=== PATIENT | male | born 1945 | race American Indian/Alaskan Native ===

== ENCOUNTER 2017-10-24 20:01 | Inpatient (IN) | payer MEDICARE, OTHER ==
[2017-10-24] MEDS ORDERED: ASPIRIN ONE (20:08)
[2017-10-24] MEDS ORDERED: ASPIRIN PO ONE (20:10)
[2017-10-24 20:33] LABS: Basophils # (Auto) 0.1 K/mm3 (0.0-0.1); Basophils % (Auto) 1.4 % (0.0-1.8); Eosinophils # (Auto) 0.3 K/mm3 (0.0-0.4); Eosinophils % (Auto) 3.3 % (0.0-4.3); Hematocrit 44.4 % (35.5-45.6); Hemoglobin 15.1 gm/dl (11.8-15.2); Lymphocytes # (Auto) 4.1 K/mm3 (1.2-5.4); Lymphocytes % (Auto) 41.9 % (13.4-35.0); Mean Corpuscular HGB Conc 34 % (32-34); Mean Corpuscular Hemoglobin 29 pg (28-32); Mean Corpuscular Volume 84 fl (84-94); Monocytes # (Auto) 0.7 K/mm3 (0.0-0.8); Monocytes % (Auto) 6.9 % (0.0-7.3); Platelet Count 152 K/mm3 (140-440); Red Blood Count 5.29 M/mm3 (3.65-5.03)
[2017-10-24 20:51] LABS: BUN/Creatinine Ratio 11; Blood Urea Nitrogen 11 mg/dL (9-20); Calcium 9.4 mg/dL (8.4-10.2); Hemolysis Index 12
--- NOTE | 2017-10-24 22:04 | XRay Report ---
FINAL REPORT EXAM: XR CHEST ROUTINE 2V HISTORY: sob TECHNIQUE: 2 views of the chest. PRIORS: None. FINDINGS: There is atherosclerosis in the thoracic aorta. Otherwise the cardiomediastinal silhouette appears normal. The lungs are clear. The bones and soft tissues are unremarkable. IMPRESSION: No evidence of acute cardiopulmonary disease
[2017-10-24] MEDS ORDERED: TYLENOL ONE (23:47)
[2017-10-25] MEDS ORDERED: TYLENOL PO ONE ×2 (00:20→05:23)
[2017-10-25] MEDS ORDERED: TYLENOL ONE (05:10)
[2017-10-25] MEDS ORDERED: ULTRAM PO ONE (06:34)
--- NOTE | 2017-10-25 06:52 | Emergency Department Report ---
ED Chest Pain HPI - General Chief Complaint: Chest Pain Stated Complaint: HIGH BP/CHEST PAIN Time Seen by Provider: 10/25/17 06:13 Source: patient Mode of arrival: Ambulatory Limitations: No Limitations - History of Present Illness Initial Comments: 72-year-old male with a past medical history diabetes, hypertension, chronic back pain, losing disc, and elevated cholesterol presents to the hospital withcomplains of chest pain, headache, and shortness of breath. Patient has been experiencing dyspnea on exertion for the last 3 weeks. The past one week patient has had intermittent chest pain described as sharp/pressure. No aggravating or relieving factors reported. Patient also experienced left-sided headache. Patient also states his blood pressure has been running higher than normal with a systolic over 200s despite compliance with his medication. Denies nausea, vomiting, diaphoresis, Tenderness, or edema. He denies current tobacco use or family history of CAD. Last Stress test was greater than 5 years ago. PMD: [facility]. Patient also complaining of his chronic back pain or significant dose of his tramadol. Severity scale (0 -10): 0 - Related Data Home Medications Medication Instructions Recorded Confirmed Last Taken Lisinopril [Zestril TAB] 20 mg PO BID 04/20/13 04/20/13 04/20/13 08:00 amLODIPine [Norvasc] 10 mg PO DAILY 04/20/13 04/20/13 04/20/13 08:00 glipiZIDE [glipiZIDE ER] 5 mg PO QAM 04/20/13 04/20/13 04/20/13 08:00 Previous Rx's Medication Instructions Recorded Last Taken Type Cyclobenzaprine [Flexeril] 10 mg PO TID PRN 5 Days tablet 04/21/13 Unknown Rx Ibuprofen [Motrin 800 MG tab] 800 mg PO TID PRN 3 Days tablet 04/21/13 Unknown Rx oxyCODONE /ACETAMINOPHEN [Percocet 1 tab PO Q6HR PRN 4 Days tablet 04/21/13 Unknown Rx 5/325 mg] Allergies Allergy/AdvReac Type Severity Reaction Status Date / Time meloxicam Allergy Unknown Verified 10/24/17 20:10 Heart Score - HEART Score History: Moderately suspicious EKG: Non-specific Age: > 65 Risk factors: > 3 risk factors or hx of atherosclerotic disease Troponin: < normal limit HEART Score: 6 ED Review of Systems ROS: Stated complaint: HIGH BP/CHEST PAIN Other details as noted in HPI Comment: All other systems reviewed and negative ED Past Medical Hx - Past Medical History Hx Hypertension: Yes Hx Diabetes: Yes Hx Renal Disease: Yes (Stage II) Hx Asthma: Yes Additional medical history: chronic back pain, bulging disc, elevated cholesterol, BPH, neuropathy - Surgical History Additional Surgical History: knee surgery - Social History Smoking Status: Never Smoker Substance Use Type: None - Medications Home Medications: Home Medications Medication Instructions Recorded Confirmed Last Taken Type Lisinopril [Zestril TAB] 20 mg PO BID 04/20/13 04/20/13 04/20/13 08:00 History amLODIPine [Norvasc] 10 mg PO DAILY 04/20/13 04/20/13 04/20/13 08:00 History glipiZIDE [glipiZIDE ER] 5 mg PO QAM 04/20/13 04/20/13 04/20/13 08:00 History Cyclobenzaprine [Flexeril] 10 mg PO TID PRN 5 Days tablet 04/21/13 Unknown Rx Ibuprofen [Motrin 800 MG tab] 800 mg PO TID PRN 3 Days tablet 04/21/13 Unknown Rx oxyCODONE /ACETAMINOPHEN [Percocet 1 tab PO Q6HR PRN 4 Days tablet 04/21/13 Unknown Rx 5/325 mg] ED Physical Exam - General Limitations: No Limitations - Other Other exam information: General: No limitations, patient is alert in no acute distress Head exam: Atraumatic, normocephalic Eyes exam: Normal appearance ENT: Moist mucous membrane, normal oropharynx Neck exam: Normal inspection, full range of motion, no meningismus nontender Respiratory exam: Clear to auscultation bilateral, no wheezes, rales, crackles Cardiovascular: Normal rate and rhythm, normal heart sounds, chest wall nontender Abdomen: Soft, nondistended, and nontender, with normal bowel sounds, no rebound, or guarding Extremity: Full range of motion normal inspection no deformity, tenderness or edema, no calf tenderness or edema Back: Normal Inspection, pain with flexion Neurologic: Alert, oriented x3, cranial nerves intact, no motor or sensory deficit Psychiatric: normal affect, normal mood Skin: Warm, dry, intact ED Course Vital Signs 10/24/17 10/25/17 10/25/17 20:06 00:22 00:58 Temperature 98.8 F 98.1 F Pulse Rate 80 63 Respiratory 20 18 18 Rate Blood Pressure 203/109 202/97 O2 Sat by Pulse 98 98 Oximetry 10/25/17 10/25/17 10/25/17 03:25 04:00 04:01 Temperature Pulse Rate 63 Respiratory 16 12 Rate Blood Pressure 218/99 167/83 O2 Sat by Pulse 98 Oximetry 10/25/17 10/25/17 10/25/17 05:00 05:24 06:01 Temperature Pulse Rate 67 Respiratory 18 18 Rate Blood Pressure 163/85 158/88 O2 Sat by Pulse Oximetry 10/25/17 07:00 Temperature Pulse Rate Respiratory 18 Rate Blood Pressure O2 Sat by Pulse Oximetry - Consultations Consultation #1: 10/25/17 06:[address] Jose Carlos Cotton physician and approves admission here. GERTRUDIS score - Gertrudis Score Age > 65: (1) Yes Aspirin use within the Past 7 Days: (0) No 3 or more CAD Risk Factors: (1) Yes 2 or more Angina events in past 24 hrs: (1) Yes Known CAD with more than 50% Stenosis: (0) No Elevated Cardiac Markers: (0) No ST Deviation Greater than 0.5mm: (0) No GERTRUDIS Score: 3 ED Medical Decision Making - Lab Data Result diagrams: 10/24/17 20:14 10/24/17 20:14 Lab Results 10/24/17 10/24/17 10/24/17 Range/Units 20:14 20:14 23:12 WBC 9.8 (4.5-11.0) K/mm3 RBC 5.29 H (3.65-5.03) M/mm3 Hgb 15.1 (11.8-15.2) gm/dl Hct 44.4 (35.5-45.6) % MCV 84 (84-94) fl MCH 29 (28-32) pg MCHC 34 (32-34) % RDW 16.0 H (13.2-15.2) % Plt Count 152 (140-440) K/mm3 Lymph % (Auto) 41.9 H (13.4-35.0) % Pratt % (Auto) 6.9 (0.0-7.3) % Eos % (Auto) 3.3 (0.0-4.3) % Baso % (Auto) 1.4 (0.0-1.8) % Lymph # 4.1 (1.2-5.4) K/mm3 Pratt # 0.7 (0.0-0.8) K/mm3 Eos # 0.3 (0.0-0.4) K/mm3 Baso # 0.1 (0.0-0.1) K/mm3 Seg Neutrophils % 46.5 (40.0-70.0) % Seg Neutrophils # 4.6 (1.8-7.7) K/mm3 Sodium 140 (137-145) mmol/L Potassium 3.5 L (3.6-5.0) mmol/L Chloride 97.8 L (98-107) mmol/L Carbon Dioxide 25 (22-30) mmol/L Anion Gap 21 mmol/L BUN 11 (9-20) mg/dL Creatinine 1.0 (0.8-1.5) mg/dL Estimated GFR > 60 ml/min BUN/Creatinine Ratio 11 % Glucose 83 (75-100) mg/dL Calcium 9.4 (8.4-10.2) mg/dL Troponin T < 0.010 < 0.010 (0.00-0.029) ng/mL 10/25/17 Range/Units 01:56 WBC (4.5-11.0) K/mm3 RBC (3.65-5.03) M/mm3 Hgb (11.8-15.2) gm/dl Hct (35.5-45.6) % MCV (84-94) fl MCH (28-32) pg MCHC (32-34) % RDW (13.2-15.2) % Plt Count (140-440) K/mm3 Lymph % (Auto) (13.4-35.0) % Pratt % (Auto) (0.0-7.3) % Eos % (Auto) (0.0-4.3) % Baso % (Auto) (0.0-1.8) % Lymph # (1.2-5.4) K/mm3 Pratt # (0.0-0.8) K/mm3 Eos # (0.0-0.4) K/mm3 Baso # (0.0-0.1) K/mm3 Seg Neutrophils % (40.0-70.0) % Seg Neutrophils # (1.8-7.7) K/mm3 Sodium (137-145) mmol/L Potassium (3.6-5.0) mmol/L Chloride (98-107) mmol/L Carbon Dioxide (22-30) mmol/L Anion Gap mmol/L BUN (9-20) mg/dL Creatinine (0.8-1.5) mg/dL Estimated GFR ml/min BUN/Creatinine Ratio % Glucose (75-100) mg/dL Calcium (8.4-10.2) mg/dL Troponin T < 0.010 (0.00-0.029) ng/mL - EKG Data -: EKG Interpreted by Me (clemente) EKG shows normal: sinus rhythm, axis (qrs -23), QRS complexes (qrsd 84), ST-T waves (no stemi/t inv) Rate: normal (71) - EKG Data When compared to previous EKG there are: previous EKG unavailable 10/25/17 06:54 1:05am repeat ekg: nsr 67, qrs -10, qrsd 82 no stemi - Radiology Data Radiology results: report reviewed cxr: naf (read by radiology) - Medical Decision Making Chest pain Several cardiac risk factors Enzymes negative 3 Patient received aspirin 1/2 inch ntg paste placed to chest wall Chronic back pain Tramadol provided Uncontrolled hypertension Elevated initially but improved spontaneously expect further reduction with ntg paste headache resolved with tylenol - Differential Diagnosis LA, unstable angina, atypical chest pain, PE Critical Care Time: No Critical care attestation.: If time is entered above; I have spent that time in minutes in the direct care of this critically ill patient, excluding procedure time. ED Disposition Clinical Impression: Chest pain, HTN (hypertension), Diabetes, Elevated cholesterol Disposition: OP ADMIT IP TO THIS HOSP Is pt being admited?: Yes Condition: Stable Time of Disposition: 07:04 (hospitalist)
[2017-10-25] MEDS ORDERED: NITRO-BID 2% TP ONE (07:07)
--- NOTE | 2017-10-25 08:56 | History and Physical Report ---
History of Present Illness Date of examination: 10/25/17 Date of admission: 10/25/17 07:17 Chief complaint: Left chest pain since yesterday History of present illness: Very pleasant 72-year-old -N[place]alese male with a medical problems presents to the ER with complains of chest pain, headache, and shortness of breath. Patient has been experiencing dyspnea on exertion for the last 3 weeks worse since yesterday. Patient reports that he has been undergoing some domestic stressful Situation The past one week patient has had intermittent chest pain described as sharp/ pressure. No aggravating or relieving factors reported. Also intermittent headache and uncontrolled blood pressures. Patient claims compliance with his medications Initial workup is negative cardiac enzymes, no acute ST-T changes on EKG Past History Past Medical History: diabetes, hypertension, hyperlipidemia, other (chronic pain syndrome) Past Surgical History: Other (knee surgery ) Social history: lives with family. denies: smoking, alcohol abuse, prescription drug abuse Family history: hypertension Medications and Allergies Allergies Allergy/AdvReac Type Severity Reaction Status Date / Time meloxicam Allergy Unknown Verified 10/24/17 20:10 Home Medications Medication Instructions Recorded Confirmed Last Taken Type amLODIPine [Norvasc] 10 mg PO DAILY 04/20/13 10/25/17 04/20/13 08:00 History ALBUTEROL Inhaler(NF) [VENTOLIN 1 puff IH Q4H PRN 10/25/17 10/25/17 Unknown History Inhaler(NF)] ALBUTEROL NEB's [Proventil 0.083% 2.5 mg IH TID PRN 10/25/17 10/25/17 Unknown History NEBS] Aspirin [Aspirin BABY CHEW TAB] 81 mg PO QDAY 10/25/17 10/25/17 Unknown History AtorvaSTATin [Lipitor] 40 mg PO QHS 10/25/17 10/25/17 Unknown History Cholecalciferol (Vitamin D3) 1,000 unit PO DAILY 10/25/17 10/25/17 Unknown History [Vitamin D3] Finasteride [Propecia] 1 mg PO DAILY 10/25/17 10/25/17 Unknown History Gabapentin [Neurontin] 300 mg PO BID 10/25/17 10/25/17 Unknown History Montelukast (Nf) [Singulair] 5 mg PO QPM 10/25/17 10/25/17 Unknown History Potassium Chloride [K-Dur] 10 meq PO QDAY 10/25/17 10/25/17 Unknown History Tamsulosin HCl [Flomax] 0.4 mg PO DAILY 10/25/17 10/25/17 Unknown History metFORMIN [Glucophage] 500 mg PO BID 10/25/17 10/25/17 Unknown History traMADol [Ultram 50 MG tab] 50 mg PO Q4HR PRN 10/25/17 10/25/17 Unknown History Review of Systems Constitutional: no weight loss, no weight gain Ears, nose, mouth and throat: no nasal congestion, no nasal discharge Cardiovascular: chest pain, no orthopnea, no palpitations, no lightheadedness Respiratory: no cough, no shortness of breath Gastrointestinal: no nausea, no vomiting, no diarrhea Genitourinary Male: no dysuria, no hematuria Musculoskeletal: no myalgias, no arthritis Integumentary: no rash, no lesions Neurological: no weakness, no seizures Psychiatric: other (General stress), no anxiety, no depression Endocrine: no cold intolerance, no heat intolerance Hematologic/Lymphatic: no easy bruising, no easy bleeding Allergic/Immunologic: no urticaria, no allergic rhinitis Exam - Constitutional Vitals: Temp Pulse Resp BP Pulse Ox 98.1 F 57 L 14 188/100 98 10/25/17 00:58 10/25/17 08:03 10/25/17 08:03 10/25/17 08:03 10/25/17 04:00 General appearance: Present: no acute distress, well-nourished, obese - EENT Eyes: Present: PERRL, EOM intact - Neck Neck: Present: supple, normal ROM - Respiratory Respiratory effort: normal Respiratory: negative: rales, rhonchi, wheezing - Cardiovascular Rhythm: regular Heart Sounds: Present: S1 & S2 - Extremities Extremities: no ischemia, No edema - Abdominal General gastrointestinal: Present: soft, non-tender, non-distended, normal bowel sounds - Integumentary Integumentary: Present: clear, warm - Musculoskeletal Musculoskeletal: strength equal bilaterally - Psychiatric Psychiatric: appropriate mood/affect, cooperative - Neurologic Neurologic: CNII-XII intact, moves all extremities Results - Labs CBC & Chem 7: 10/24/17 20:14 10/24/17 20:14 Labs: Abnormal lab results 08/14/18 08/14/18 Range/Units 20:14 20:14 RBC 5.29 H (3.65-5.03) M/mm3 RDW 16.0 H (13.2-15.2) % Lymph % (Auto) 41.9 H (13.4-35.0) % Potassium 3.5 L (3.6-5.0) mmol/L Chloride 97.8 L (98-107) mmol/L Assessment and Plan --Atypical chest pain; probably noncardiac However in view of his multiple risk factors, management aspirin beta blockers Josh inhibitors nitrates and statins Stress test, echocardiogram, Cardiology evaluation if needed --Type 2 diabetes mellitus; Accu-Chek sliding scale coverage 80 her diet Insulin as needed --Hypertension; Resume home antihypertensives and when necessary medications --Dyslipidemia; Continue lipid-lowering medications and, low-cholesterol diet --Chronic low back pain; supportive care and pain medications --General stress; counseling, psych evaluation if needed --DVT prophylaxis; Lovenox Closely monitor the patient, follow stress test and echocardiogram Negative and if patient is stable,will be discharged home in 1-2 days
[2017-10-25] MEDS ORDERED: FLEXERIL PO PRN (08:57)
[2017-10-25] MEDS ORDERED: PERCOCET 5/325 PO PRN (08:57)
[2017-10-25] MEDS ORDERED: APRESOLINE IV ONE (08:57)
[2017-10-25] MEDS ORDERED: NITROSTAT SL PRN (09:00)
[2017-10-25] MEDS ORDERED: MORPHINE IV PRN (09:01)
[2017-10-25 09:49] LABS: Chol/HDL Ratio 3.62 %
[2017-10-25] MEDS ORDERED: NORVASC PO SCH ×2 (10:00→11:00)
[2017-10-25] MEDS ORDERED: ZESTRIL PO SCH (11:00)
[2017-10-25] MEDS ORDERED: APRESOLINE IV NR (11:00)
[2017-10-25] MEDS ORDERED: LOPRESSOR PO SCH (11:00)
[2017-10-25] MEDS ORDERED: GLUCOTROL XL PO SCH (11:00)
[2017-10-25] MEDS ORDERED: ASPIRIN PO SCH (11:00)
[2017-10-25] MEDS ORDERED: LEXISCAN IV ONE ×2 (11:07→11:12)
[2017-10-25] MEDS ORDERED: HumaLOG SUB-Q SCH (11:30)
--- NOTE | 2017-10-25 12:53 | Treadmill Report ---
LEXISCAN STRESS TEST REPORT REASON FOR STUDY: Chest pain. STRESS TEST PROTOCOL: The patient received 0.4 mg of Lexiscan intravenously over 10 seconds. Tetrofosmin was subsequently injected. Baseline EKG, normal sinus rhythm with incomplete right bundle branch block. Lexiscan EKG, no diagnostic ischemic changes. No chest pain. The patient experienced a transient episode of idioventricular rhythm during Lexiscan infusion. IMPRESSION: Electrocardiographically negative stress test. Nuclear imaging report to follow. JOB# [id number] AGO/NTS
--- NOTE | 2017-10-25 13:13 | Treadmill Report ---
THALLIUM REPORT REASON FOR STUDY: Chest pain. IMAGING PROTOCOL: The patient received Tc-99m Tetrofosmin for rest and stress imaging. Imaging for all procedures was completed 30-90 minutes following the initial injection of Technetium 99m Tetrofosmin. SPECT imaging in the 180 degree a arc was performed in the right anterior oblique projection. Computerized reconstruction of the images was performed for analysis. NUCLEAR IMAGING RESULTS: Normal left ventricular cavity size with no change from stress to rest. Distribution of radionuclide within the left ventricle revealed a large area of photo-induction involving the inferior wall. The degree of photo-induction is moderate. Rest imaging does not show any significant improvement in this defect. In addition, there is a small area of photo-induction involving the inferolateral wall. The degree of photo-induction is moderate. Rest imaging does not show any significant improvement in this defect. Gated SPECT imaging revealed normal global LV systolic function with no significant wall motion abnormalities. The calculated left ventricular ejection fraction is 58%. IMPRESSION: Large fixed inferior wall defect. Small fixed inferolateral defect. Normal global LV systolic function with no significant wall motion abnormalities. Ejection fraction 58%. 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 In addition, there is suggestion of a small area of prior infarction in the left circumflex coronary artery territory. However, in the absence of significant wall motion abnormalities, the defects noted in this patient may be artifactual. No evidence of significant stress-induced ischemia. JOB# [id number] PIO/FATOUMATA ZAPIEN
[2017-10-25 15:04] VITALS: BP 140/74
--- NOTE | 2017-10-25 15:24 | Discharge Summary ---
Providers - Providers Date of Admission: 10/25/17 07:17 Date of discharge: 10/25/17 Attending physician: CJ ZIEGLER Hospitalization Reason for admission: left-sided chest pain Condition: Stable Pertinent studies: Chest x-ray; no abnormality Stress test; negative for reversible ischemia, normal ejection fraction Hospital course: 72-year-old male patient with significant history of diabetes hypertension chronic back pain dyslipidemia was admitted through emergency room with left-sided chest pain Patient was initially evaluated, managed symptomatically, in view of multiple risk factors Patient had stress test which was negative for reversible ischemia, normal left ventricular function Patient's symptoms significantly improved, counseling done Initially patient's blood pressure was uncontrolled, however after receiving his home antihypertensives, BP brought to reasonable level Today patient is comfortable no new complaints Denies chest pain or shortness of breath Vital signs stable, physical examination at discharge unremarkable Patient also complains of some social issues which cause him a lot of stress Patient advised counseling, to cope up for the stressful situation Also advised to see behavioral health as needed for evaluation . Patient is hemodynamically then concurrent stable for discharge, follow-up with PMD , also registered nurse first assistant as needed Discharge Diagnosis; --Atypical chest pain; probably secondary to GERD --Negative stress test --GERD --Type 2 diabetes mellitus --Hypertension --Dyslipidemia --General Stress Disposition: DC-01 TO HOME OR SELFCARE Time spent for discharge: 32 min Core Measure Documentation - Palliative Care Palliative Care/ Comfort Measures: Not Applicable - Core Measures Any of the following diagnoses?: none Exam - Constitutional Vitals: Temp Pulse Resp BP Pulse Ox 98.1 F 70 18 140/74 99 10/25/17 00:58 10/25/17 15:04 10/25/17 15:04 10/25/17 15:04 10/25/17 15:04 General appearance: Present: no acute distress, well-nourished - EENT Eyes: Present: PERRL, EOM intact - Neck Neck: Present: supple, normal ROM - Respiratory Respiratory effort: normal Respiratory: negative: rales, rhonchi, wheezing - Cardiovascular Rhythm: regular Heart Sounds: Present: S1 & S2 - Extremities Extremities: no ischemia, No edema - Abdominal General gastrointestinal: Present: soft, non-tender, non-distended, normal bowel sounds - Integumentary Integumentary: Present: clear, warm - Musculoskeletal Musculoskeletal: strength equal bilaterally - Psychiatric Psychiatric: appropriate mood/affect, cooperative - Neurologic Neurologic: CNII-XII intact, moves all extremities Plan Activity: no restrictions Diet: diabetic Additional Instructions: Chest pain or shortness of breath contact M.D. or go to emergency room. If you have recurrent chest pain advised to see registered nurse first assistant for further evaluation Follow up with: TERRENCE COY [Other] - 3-5 Days KEZIA JAIME MD [Staff Physician] - 7 Days
[2017-10-25] MEDS ORDERED: LOVENOX SUB-Q SCH (22:00)
== END 2017-10-25 16:00 | disposition home or self-care (01) | DRG 392 ==
LOC: ED 20:01 → 4A 10-25 07:17
PROVIDERS: ADMIT Internal Medicine; ATTEND Internal Medicine
DX: K21.9 Gastro-esophageal reflux disease without esophagitis (principal); I10 Essential (primary) hypertension; E78.5 Hyperlipidemia, unspecified; F43.9 Reaction to severe stress, unspecified; G89.4 Chronic pain syndrome; M54.5 Low back pain; N40.0 Benign prostatic hyperplasia without lower urinary tract symptoms; E11.40 Type 2 diabetes mellitus with diabetic neuropathy, unspecified; J45.909 Unspecified asthma, uncomplicated; Z71.89 Other specified counseling; Z82.49 Family history of ischemic heart disease and other diseases of the circulatory system; Z79.82 Long term (current) use of aspirin; Z79.899 Other long term (current) drug therapy
CPT/HCPCS: 36415; 71046; 78452; 80048; 80061; 82962; 84484; 85025; 93005; 93010; 93017; 93306; A9502; J0360; J2785